=== PATIENT | female | born 1945 | race Caucasian/White ===

== ENCOUNTER 2017-01-10 09:01 | Outpatient (CLI) | payer MEDICARE, OTHER ==
--- NOTE | 2017-01-10 13:38 | MRI ---
EXAM: CERVICAL SPINE MRI WITH AND WITHOUT CONTRAST: HISTORY: Numbness. COMPARISON: 11/30/16. TECHNIQUE: A cervical spine MRI is performed without intravenous and with intravenous Gadolinium administration . Multisequential, multiplanar imaging is performed. FINDINGS: Stable marrow signal intensity of the cervical vertebrae. Persistent straightening of normal cervic al lordosis. No significant STIR hyperintensity to suggest ligamentous injury or vertebral body marcel ma. Visualized brain parenchyma, cervicomedullary junction, cervical cord, and the upper thoracic cord h ave a normal size and signal intensity. On the postcontrast images, there is appropriate enhancement of the vertebral bodies. There is no a bnormal enhancement of the visualized brain parenchyma, cervicomedullary junction, cervical cord, or the upper thoracic cord. Stable grade I anterolisthesis of C3 upon C4, C6 upon C7, and C7 upon T1. C2-C3: Central disk-osteophyte complex without significant central canal stenosis. Neural foramina are patent. C3-C4: Central disk-osteophyte complex abuts the thecal sac. Ventral subarachnoid space is maintai payton. No significant central canal stenosis or foraminal narrowing. C4-C5: Broad-based disk-osteophyte complex abuts the thecal sac. Mild central canal stenosis. Fabiola ral foramen are patent. C5-C6: Broad-based disk-osteophyte complex abuts the thecal sac. Ventral subarachnoid space contin ues to be effaced. There is moderate central canal stenosis. Mild bilateral foraminal narrowing. Stable flattening of the cervical cord. C6-C7: Broad-based disk-osteophyte complex abuts the thecal sac. No significant central canal sten osis. Neural foramen are patent bilaterally. C7-T1: No central canal stenosis. Neural foramen are patent. IMPRESSION: 1. Stable degenerative change of the cervical spine. 2. No abnormal enhancement in the cervical cord. Additionally, the previously noted patchy T2 hype rintensity in the cord is not appreciated on the current examination suggesting artifact on the prev ious study. POS: [facility]
== END 2017-01-10 09:02 | disposition home or self-care (01) ==
LOC: TBSIIMAG 09:01
PROVIDERS: ATTEND Neurological Surgery
DX: R20.2 Paresthesia of skin (principal); M47.812 Spondylosis without myelopathy or radiculopathy, cervical region
CPT/HCPCS: 72156

== ENCOUNTER 2017-02-26 10:59 | Outpatient (CLI) | payer MEDICARE, OTHER ==
--- NOTE | 2017-02-26 13:45 | RAD ---
KUB: Date: 02-26-17 Comparison: None. History: Microscopic hematuria. FINDINGS: There are two calcifications within the right upper quadrant, measuring 5-6 mm each, suggesting proba ble right sided renal calculi. In addition, there is a 4-5 mm calcification in the left upper abdomen , which may represent a stone overlying the left lower pole. The bowel gas pattern is nonobstructed. Stool overlies the colon. IMPRESSION: Bilateral upper abdominal calcifications suggest bilateral renal stone disease. POS: [facility]
== END 2017-02-26 11:00 | disposition home or self-care (01) ==
LOC: RAD 10:59
PROVIDERS: ATTEND Urology
DX: R31.29 Other microscopic hematuria (principal); N28.89 Other specified disorders of kidney and ureter
CPT/HCPCS: 74000; 88112

== ENCOUNTER 2017-09-18 07:51 | Outpatient (CLI) | payer MEDICARE, OTHER ==
[2017-09-18 08:42] LABS: Anion Gap 12 mmol/L (10-20); BUN (Urea Nitrogen) 15 mg/dL (9.8-20.1); Calc. Creatinine Clearance 0 mL/min (70-130); Calcium 9.5 mg/dL (7.8-10.44); Carbon Dioxide 25 mmol/L (23-31); Chloride 100 mmol/L (98-107); Estimated GFR-MDRD 80; Glucose 106 mg/dL (80-115); Potassium 3.9 mmol/L (3.5-5.1); Sodium 133 mmol/L (136-145)
[2017-09-18 09:02] LABS: Bilirubin Negative (Negative); Blood, Urine Small (Negative); Clarity CLOUDY (Clear); Glucose, Urine (Dipstick) Negative (Negative); Leukocyte Large (Negative); Nitrite Positive (Negative); Protein, Urine (Dipstick) Negative (Neg-Trace); Specific Gravity, Urine 1.012 (1.002-1.036); Urobilinogen 0.2 mg/dL (0.2-1.0)
[2017-09-18 09:04] LABS: Bacteria/HPF 4+ HPF (None Seen); Hyaline Casts/LPF 0-3 HYALINE CAST LPF (0-3 Hyaline); Squamous Epithelial None Seen HPF (0-3); WBC/HPF 21-50 HPF (0-3)
--- NOTE | 2017-09-18 09:29 | RAD ---
KUB: HISTORY: Renal stone. FINDINGS: Comparison is made with the exam of 02/26/17. The 2 right-sided renal calculi measuring about 5-6 mm each and the 4-5 mm calculus in the left kidney are unchanged. There is fecal material in the colon . Bowel gas pattern is unremarkable. IMPRESSION: Stable bilateral renal calculi. POS: [facility]
== END 2017-09-18 07:52 | disposition home or self-care (01) ==
LOC: RAD 07:51
PROVIDERS: ATTEND Urology
DX: N20.0 Calculus of kidney (principal); R31.29 Other microscopic hematuria
CPT/HCPCS: 36415; 74018; 80048; 81001; 87077; 87086; 87186; 88112

== ENCOUNTER 2017-10-07 12:26 | Emergency (ER) | payer MEDICARE, OTHER ==
[2017-10-07] MEDS ORDERED: Dexamethasone 4 mg/ml Vial ONE (14:07)
== END 2017-10-07 15:24 | disposition home or self-care (01) ==
LOC: ERS 12:26
DX: T78.1XXA Other adverse food reactions, not elsewhere classified, initial encounter (principal); E78.5 Hyperlipidemia, unspecified; I10 Essential (primary) hypertension; F41.9 Anxiety disorder, unspecified; F32.9 Major depressive disorder, single episode, unspecified; Z79.899 Other long term (current) drug therapy; Z79.82 Long term (current) use of aspirin
CPT/HCPCS: 96374; J1100

== ENCOUNTER 2017-10-29 14:31 | Outpatient (CLI) | payer MEDICARE, OTHER ==
--- NOTE | 2017-10-29 14:55 | RAD ---
ABDOMEN ONE VIEW: History: Renal calculi. Comparison: 09-18-17 FINDINGS: Gas and stool throughout the colon and rectum. Small bowel gas pattern is nonspecific. Irregular shap ed calcifications overlying the inferior pole of each kidney are similar in appearance to the prior e xam. IMPRESSION: Stable radiographic appearance of bilateral renal calculi. POS: [facility]
--- NOTE | 2017-10-29 16:00 | ULT ---
ULTRASOUND RENAL BILATERAL STANDARD: Date: 10/29/17 HISTORY: Microscopic hematuria. History of renal stones. COMPARISON: CT from 2017. TECHNIQUE: Real-time Jasso scale and color evaluation of the kidneys and urinary bladder performed. FINDINGS: The right kidney measures 9.7 x 5.9 x 9.8 cm. The left kidney measures 11.5 x 5.6 x 6.0 cm. There are bilateral nonobstructive renal calculi. The largest calculus in the right kidney measures up to 1.4 cm. The largest calculus in the left kidney measures up to 6.0 mm. Pre-void urinary bladder volume was 150 mL. IMPRESSION: 1. No evidence of obstructive uropathy. 2. Nonobstructive bilateral renal calculi. POS: [facility]
== END 2017-10-29 14:32 | disposition home or self-care (01) ==
LOC: ULT 14:31
PROVIDERS: ATTEND Urology
DX: N20.0 Calculus of kidney (principal); R31.29 Other microscopic hematuria
CPT/HCPCS: 36415; 74018; 76770; 80053; 81001; 83516; 84443; 85025; 87086

== ENCOUNTER 2017-12-16 10:40 | Outpatient (CLI) | payer MEDICARE, OTHER | END 2017-12-16 10:41 | disposition home or self-care (01) | LOC: BICMAMMO 10:40 | PROVIDERS: ATTEND Internal Medicine | DX: Z12.31 Encounter for screening mammogram for malignant neoplasm of breast (principal); R92.1 Mammographic calcification found on diagnostic imaging of breast; Z80.3 Family history of malignant neoplasm of breast | CPT/HCPCS: 77063; 77067 ==

== ENCOUNTER 2017-12-30 11:05 | Outpatient (CLI) | payer MEDICARE, OTHER ==
[2017-12-30 11:36] LABS: Bilirubin Negative (Negative); Blood, Urine Trace (Negative); Clarity CLEAR (Clear); Glucose, Urine (Dipstick) Negative (Negative); Leukocyte Negative (Negative); Nitrite Negative (Negative); Protein, Urine (Dipstick) Negative (Neg-Trace); Specific Gravity, Urine 1.005 (1.002-1.036); Urobilinogen 0.2 mg/dL (0.2-1.0); pH, Urine 7.5 (5.0-9.0)
[2017-12-30 11:39] LABS: Bacteria/HPF None Seen HPF (None Seen); Hyaline Casts/LPF 0-3 HYALINE CAST LPF (0-3 Hyaline); RBC/HPF 0-3 HPF (0-3); Squamous Epithelial None Seen HPF (0-3); WBC/HPF None Seen HPF (0-3)
[2017-12-30 11:58] LABS: Anion Gap 9 mmol/L (10-20); BUN (Urea Nitrogen) 10 mg/dL (9.8-20.1); Calc. Creatinine Clearance 0 mL/min (70-130); Calcium 9.3 mg/dL (7.8-10.44); Carbon Dioxide 28 mmol/L (23-31); Chloride 99 mmol/L (98-107); Estimated GFR-MDRD 74; Glucose 133 mg/dL (83-110); Potassium 4.1 mmol/L (3.5-5.1); Sodium 132 mmol/L (136-145)
--- NOTE | 2017-12-30 14:50 | RAD ---
KUB: History: Renal calculi. Comparison: 10-29-17 FINDINGS: Bilateral renal calculi are seen which appear stable in appearance as compared to the prior exam. I d o not see any definitive ureteral calculus. Arthritic changes of the spine and hips are noted. IMPRESSION: Stable bilateral renal calculi. POS: [facility]
== END 2017-12-30 11:06 | disposition home or self-care (01) ==
LOC: RAD 11:05
PROVIDERS: ATTEND Urology
DX: N20.0 Calculus of kidney (principal); R31.29 Other microscopic hematuria
CPT/HCPCS: 36415; 74018; 80048; 81001; 87086

== ENCOUNTER 2018-01-27 10:49 | Outpatient (CLI) | payer MEDICARE, OTHER ==
--- NOTE | 2018-01-27 14:13 | BD ---
DEXA SCAN: INDICATION: Postmenopausal osteoporosis screening. COMPARISON: None. Lumbar Spine: BMD (g/cm2) L1 0.787 T-Score: -1.8 Z-Score: 0.1 L2 0.844 T-Score: -1.7 Z-Score: 0.5 L3 0.981 T-Score: -0.9 Z-Score: 1.3 L4 1.002 T-Score: -0.5 Z-Score: 1.8 L1-L4 0.915 T-Score: -1.2 Z-Score: 1.0 Femoral Neck: 0.731 T-Score: -1.1 Z-Score: 0.8 Total Femur: 1.018 T-Score: 0.6 Z-Score: 2.2 Based on WHO fracture risk assessment tool, the 10-year fracture risk for a major osteoporotic fractu re is 9.3% and for a hip fracture 9.3% and for a hip fracture is 1.1%. IMPRESSION: Based on WHO criteria, the patient's bone mineral density is osteopenic. The patient is at moderate risk for fracture. POS: [facility]
== END 2018-01-27 10:50 | disposition home or self-care (01) ==
LOC: BICMAMMO 10:49
PROVIDERS: ATTEND Internal Medicine
DX: Z78.0 Asymptomatic menopausal state (principal); M85.89 Other specified disorders of bone density and structure, multiple sites
CPT/HCPCS: 77080

== ENCOUNTER 2018-02-06 10:55 | Outpatient (CLI) | payer MEDICARE, OTHER ==
[2018-02-06 13:29] LABS: Mean Corpuscular HGB CONC 32.3 g/dL (32.0-36.0); Mean Corpuscular Hemoglobin 32.6 pg (27.0-31.0); Mean Platelet Volume 7.6 fL (7.4-10.4); Platelet Count 291 thou/uL (130-400); RBC Distribution Width 11.4 % (11.5-14.5); Red Blood Cell (RBC) Count 4.61 mill/uL (4.20-5.40); White Blood Cell (WBC) Count 5.8 thou/uL (4.8-10.8)
[2018-02-06 13:40] LABS: Bacteria/HPF None Seen HPF (None Seen); Bilirubin Negative (Negative); Blood, Urine Small (Negative); Clarity CLEAR (Clear); Glucose, Urine (Dipstick) Negative (Negative); Hyaline Casts/LPF 0-3 HYALINE CAST LPF (0-3 Hyaline); Leukocyte Negative (Negative); Nitrite Negative (Negative); Protein, Urine (Dipstick) Negative (Neg-Trace); Specific Gravity, Urine 1.005 (1.002-1.036); Squamous Epithelial None Seen HPF (0-3); Urobilinogen 0.2 mg/dL (0.2-1.0); WBC/HPF None Seen HPF (0-3)
[2018-02-06 13:41] LABS: PTT 30.6 SEC (22.9-36.1); Prothrombin Time 12.8 SEC (12.0-14.7)
[2018-02-06 13:58] LABS: Anion Gap 16 mmol/L (10-20); BUN (Urea Nitrogen) 15 mg/dL (9.8-20.1); Calc. Creatinine Clearance 0 mL/min (70-130); Carbon Dioxide 24 mmol/L (23-31); Chloride 102 mmol/L (98-107); Estimated GFR-MDRD 79; Glucose 102 mg/dL (83-110); Potassium 3.8 mmol/L (3.5-5.1); Sodium 138 mmol/L (136-145)
--- NOTE | 2018-02-06 15:43 | EKG ---
Test Reason : Blood Pressure : / mmHG Vent. Rate : 080 BPM Atrial Rate : 080 BPM P-R Int : 156 ms QRS Dur : 094 ms QT Int : 398 ms P-R-T Axes : 058 -03 044 degrees QTc Int : 459 ms Normal sinus rhythm Low voltage QRS Cannot rule out Anterior infarct , age undetermined Abnormal ECG Confirmed by KILEY THOMPSON ([id number]) on 02/06/2018 3:43:17 PM Referred By: ABBE Confirmed By:KILEY THOMPSON
== END 2018-02-06 10:56 | disposition home or self-care (01) ==
LOC: LABBT 10:55
PROVIDERS: ATTEND Urology
DX: Z01.818 Encounter for other preprocedural examination (principal); N20.0 Calculus of kidney; R31.29 Other microscopic hematuria; N39.41 Urge incontinence
CPT/HCPCS: 80048; 81001; 85027; 85610; 85730; 87086; 93005; 93010

== ENCOUNTER 2018-02-19 06:08 | Day surgery (SDC) | payer MEDICARE, OTHER ==
[2018-02-06 11:22] VITALS: BMI 26.9
[2018-02-19] MEDS ORDERED: diphenhydrAMINE 50 MG/ML VIAL ONE (06:50)
[2018-02-19] MEDS ORDERED: Hydrocortisone Sod Succ/PF 100 mg/2 ml Vial ONE (06:53)
[2018-02-19] MEDS ORDERED: Fentanyl 250 MCG/5 ML VIAL ONE (06:53)
[2018-02-19] MEDS ORDERED: Iothalamate Meglumine 60% 50 ML VIAL FS ONE (07:12)
[2018-02-19] MEDS ORDERED: Ioversol 68 % 50 ML VIAL ONE (07:30)
[2018-02-19] MEDS ORDERED: Levofloxacin 500 mg/D5W 100 ml Premix Bag ONE (07:46)
[2018-02-19] MEDS ORDERED: Phenazopyridine HCl 97.5 MG TABLET ONE (09:25)
[2018-02-19] MEDS ORDERED: Ketorolac Tromethamine 30 MG/ML VIAL ONE (09:25)
[2018-02-19] MEDS ORDERED: Oxybutynin 5 MG TAB ONE (09:25)
[2018-02-19] MEDS ORDERED: Fentanyl 100 MCG/2 ML VIAL ONE (09:29)
--- NOTE | 2018-02-19 09:45 | RAD ---
RETROGRADE URETEROGRAM INTRAOPERATIVE FLUOROSCOPY: History: Ureteral obstruction. Fluoro time: 0.6 minutes. FINDINGS/IMPRESSION: Intraoperative fluoroscopy was provided for retrograde study as performed by Dr. Chris. Spot fl uoroscopic images show contrast opacification of a nondilated right renal collecting system and urete r and placement of a stent. Proximal coil is over the location of the right renal pelvis. Distal coil is not included on the images. POS: [facility]
--- NOTE | 2018-02-19 10:04 | OP ---
DATE OF PROCEDURE: 02/19/2018 PREOPERATIVE DIAGNOSIS: This is a 72-year-old female with history of bilateral renal calculi. Right renal calculi, mid pole 8-9 mm, lower pole 6 mm; left lower pole 5 mm, Hounsfield unit 1700. POSTOPERATIVE DIAGNOSIS: This is a 72-year-old female with history of bilateral renal calculi. Righ t renal calculi, mid pole 8-9 mm, lower pole 6 mm; left lower pole 5 mm, Hounsfield unit 1700. PROCEDURE: Cystoscopy, dilation of right distal ureter, retrograde pyelogram, flexible ureteroscopy, pyeloscopy, laser lithotripsy of multiple right renal calculi, basket extraction of stone fragments, 6 x 24 double-J ureteral stent placement. SURGEON: Yaneli Chris D.O. ANESTHESIA: General. COMPLICATIONS: None apparent. DISPOSITION: To the recovery room in stable condition. SPECIMEN: Stone fragments for chemical analysis. INDICATIONS FOR THE PROCEDURE AND HISTORY: Ms. Downs is a 72-year-old female, G4, P4, who init [facility] presented for evaluation of microscopic hematuria. The patient has mixed urinary incontinence, mild in nature; however, recently started on VESIcare. She says that she has it at home; however, n ot started the medical therapy for this. We have been observing her bilateral renal calculi found on workup for microscopic hematuria. Given stone size, burden of the right kidney, she desired to proc eed with elective treatment. We discussed options of ESWL, ureteroscopy, laser lithotripsy. I did n ot recommend PCNL. She desired to proceed with more efficacious treatment, i.e., ureteroscopy, laser lithotripsy with the full understanding regarding possible secondary intervention if needed. All qu estions were answered to her satisfaction. Risks and complications including, but not limited to, bl eeding, pain, infection, injury to adjacent organs, stricture formation, ureter, bladder, and kidney injury, sepsis. All questions answered. She desired to proceed without reservation. DESCRIPTION OF THE PROCEDURE: After an informed consent is signed, the patient is taken to the opera ting room, placed in a dorsal lithotomy position with the genital area prepped and draped in the usua l surgical sterile fashion. Bilateral TWILA hose, SCDs, and broad-spectrum antibiotics were provided. A 21-Venezuelan cystoscope was utilized for cystoscopy, which demonstrated normal bladder mucosa. Bilat eral UOs identified in normal orthotopic position. At this time, a 5-Venezuelan open-ended catheter was utilized for retrograde pyelogram, which demonstrated no evidence of filling defect. The stones were seen on fluoroscopy in the mid and lower pole, the lower pole infundibulum had an acute approximatel y 45-degree angle infundibulum. At this time, a 0.35 sensor wire was placed in the right upper pole. Using a [employer] 4 cm 12-Venezuelan balloon dilator, we passively dilated the distal intramura l ureter. After subsequent dilatation balloon was deflated. A 10-Venezuelan dual-lumen access sheath wa s able to be passed to the level of the proximal ureter and a second safety wire, 0.35 Super Stiff wa s placed. The navigator was then removed and an 11/13-Venezuelan x 28 cm navigator was passed to the lev el of the proximal ureter with ease. A digital flexible ureteroscope was then advanced over the work ing wire. We visualized each arlin, a large stone was seen in the right mid pole, the angle was quit e cumbersome given its location, the lower pole stone was visualized and moved to a more amendable tr eatment with basket. The stones appeared to be larger than previously inspected. The right mid pole was probably approximately 9-10 mm and left lower pole stone approximately 8 mm. Using 200 micron l aser fiber, we laser lithotripsied the lower pole stone first. The fragmented debris did migrate int o the upper pole, and we basket extracted the fragments. We now paid attention to our right mid pole stone, angle was quite challenging. I tried to utilize the basket to move to a stone to more amenda ble location; however, given its size, it would not be negotiated out of the mid pole arlin. Therefo re, we did laser lithotripsy the lead edge of the stone and we were able to make progress. Using 200 micron fiber, I was able to make progress and laser lithotripsy the stone complete. The fragmented debris did migrate into the lower pole. We basket extracted all of those that were amendable to be b asket extracted. We surveyed the collecting system. I did not see any further stone nidus in the up per and mid pole of concern. Punctate residual nidus remains. In the lower pole, I did see anterior lower pole arlin that had some fragmented debris. We basket extracted this as much as we can. Johny nevarez was not amendable given its anterior location. Inspection of the lower pole anterior arlin demonst rated the fragmented debris was quite small punctate in nature, largest approximately 2 mm. Therefor e, given the angle and difficulty engaging these were left in situ, again noted at these are very sma ll stones, which she will most likely pass. Fluoroscopy demonstrated no significant stone burden of concern. The ureter was surveyed, which demonstrated no evidence of ureteral calculi and no ureteral mucosa trauma of concern. Navigator was completely removed. A 6 x 24 double-J ureteral stent was p assed without difficulty and bladder completely emptied. She is discharged with ciprofloxacin until followup appointment, Zofran 4 mg ODT p.r.n., ciprofloxacin 7 days, Colace 100 mg 1 p.o. b.i.d. AZO p .r.n., Uledi 5/325. She has VESIcare at home. I encouraged the patient to fill the prescription, as she will have frequency or urgency due to an indwelling ureteral stent. She will see me next Tuesda y with KUB an hour prior to appointment. If no ureteral stone debris of concern, we will perform cys to stent pull under local.
[2018-02-19] MEDS ORDERED: HYDROcodone/Acetaminophen 5/325 mg Tablet ONE (10:35)
[2018-02-19] MEDS ORDERED: PHENYLEPHRINE-NS 100 MCG/ML 10 ML SYRINGE ONE (16:42)
[2018-02-19] MEDS ORDERED: PROPOFOL 200 MG/20 ML VIAL ONE (16:42)
[2018-02-19] MEDS ORDERED: Ondansetron PF 4 MG/2 ML Vial ONE (16:42)
[2018-02-19] MEDS ORDERED: Lidocaine 1% PF 5 ML VIAL ONE (16:42)
[2018-02-19] MEDS ORDERED: Glycopyrrolate 0.2 MG/ML 5 ML SYRINGE ONE (16:42)
== END 2018-02-19 11:06 | disposition home or self-care (01) ==
LOC: SDC 06:08
PROVIDERS: ATTEND Urology
PROC: 0TF38ZZ Fragmentation in Right Kidney Pelvis, Via Natural or Artificial Opening Endoscopic (ICD-10-PCS; principal; 2018-02-19)
PROC: 0T768DZ Dilation of Right Ureter with Intraluminal Device, Via Natural or Artificial Opening Endoscopic (ICD-10-PCS; 2018-02-19)
DX: N20.2 Calculus of kidney with calculus of ureter (principal); N39.41 Urge incontinence
CPT/HCPCS: 52356; 74420; 82365; 88300; 96374; 96375; C1758; C1769; J1200; J1720; J1885; J1956; J2001; J2405; J2704; J3010; Q9961; Q9967

== ENCOUNTER 2018-02-25 07:06 | Outpatient (CLI) | payer MEDICARE, OTHER ==
--- NOTE | 2018-02-25 08:29 | RAD ---
CHEST ONE VIEW: History: 72-year-old female with history of renal calculi. FINDINGS: Right ureteral calculus is in place. Left lower pole renal calculus. Two previously noted right renal calculi seen on 12-30-17 study are no longer evident. IMPRESSION: Right ureteral stent. Left lower pole renal calculus. POS: [facility]
== END 2018-02-25 07:07 | disposition home or self-care (01) ==
LOC: RAD 07:06
PROVIDERS: ATTEND Urology
DX: N20.0 Calculus of kidney (principal); Z96.0 Presence of urogenital implants
CPT/HCPCS: 74018

== ENCOUNTER 2018-04-21 08:56 | Outpatient (CLI) | payer MEDICARE, OTHER ==
--- NOTE | 2018-04-21 09:56 | RAD ---
ACUTE ABDOMINAL RADIOGRAPH: Date: 04-21-18 History: Renal stones. Comparison: 03-05-18 FINDINGS: Right ureteral stent has been removed. Calculus overlying the inferior pole left renal shadow is agai n present. There are calcifications overlying the medial left upper quadrant, probably related to vas cular type calcifications. Bowel gas pattern is nonspecific. Osseous structures are intact. Degenerative changes are noted at th e pubic symphysis. No other interval change. IMPRESSION: 1. Interval removal of the right ureteral stent. 2. Left nephrolithiasis, stable from prior exam. POS: [facility]
== END 2018-04-21 08:57 | disposition home or self-care (01) ==
LOC: RAD 08:56
PROVIDERS: ATTEND Urology
DX: N20.0 Calculus of kidney (principal); R31.29 Other microscopic hematuria
CPT/HCPCS: 74018; 81001; 87086

== ENCOUNTER 2019-02-25 10:37 | Outpatient (CLI) | payer MEDICARE, OTHER ==
--- NOTE | 2019-02-25 11:18 | MMO ---
Bilateral MAMMO Bilat Screen [facility]. CLINICAL HISTORY: Patient is 73 years old and is seen for screening. The patient has the following family history of breast cancer: mother, at age 65, malignant (generic) and maternal grandmother, at age 70, malignant (generic). The patient has no personal history of cancer. The patient has a history of Explantation at age 56 and Implants. VIEWS: The views performed were: bilateral craniocaudal with tomosynthesis and bilateral mediolateral oblique with tomosynthesis. FILMS COMPARED: The present examination has been compared to prior imaging studies performed at [facility] on 12/16/2014 and 02/22/2016, and at [facility] on 12/16/2017. This study has been interpreted with the assistance of computer-aided detection. MAMMOGRAM FINDINGS: There are scattered fibroglandular densities. There are no suspicious masses, suspicious calcifications, or new areas of architectural distortion. IMPRESSION: THERE IS NO MAMMOGRAPHIC EVIDENCE OF MALIGNANCY. A ROUTINE FOLLOW-UP MAMMOGRAM IN 1 YEAR IS RECOMMENDED. THE RESULTS OF THIS EXAM WERE SENT TO THE PATIENT. ACR BI-RADS Category 1 - Negative MAMMOGRAPHY NOTE: 1. A negative mammogram report should not delay a biopsy if a dominant of clinically suspicious mass is present. 2. Approximately 10% to 15% of breast cancers are not detected by mammography. 3. Adenosis and dense breasts may obscure an underlying neoplasm. Reported by: NAKUL ZUNIGA MD Electonically Signed: [id number]
== END 2019-02-25 10:38 | disposition home or self-care (01) ==
LOC: BICMAMMO 10:37
PROVIDERS: ATTEND Internal Medicine
DX: Z12.31 Encounter for screening mammogram for malignant neoplasm of breast (principal); Z80.3 Family history of malignant neoplasm of breast
CPT/HCPCS: 77063; 77067

== ENCOUNTER 2019-05-06 10:38 | Outpatient (CLI) | payer MEDICARE, OTHER ==
--- NOTE | 2019-05-06 11:04 | RAD ---
KUB INDICATION: Microhematuria and renal stones COMPARISON: Prior exam degenerated 2018 FINDINGS: Bowel gas: Nonspecific but without overt appearance of obstruction. Lung bases: Clear. Additional findings: Stable left nephrolithiasis. Osseous structures: No acute fracture or subluxation demonstrated. There is scattered degenerative an d osteoarthritic change present. IMPRESSION: 1. Stable left nephrolithiasis
== END 2019-05-06 10:39 | disposition home or self-care (01) ==
LOC: RAD 10:38
PROVIDERS: ATTEND Urology
DX: N20.0 Calculus of kidney (principal)
CPT/HCPCS: 74018

== ENCOUNTER 2020-03-22 12:46 | Outpatient (CLI) | payer MEDICARE, OTHER ==
--- NOTE | 2020-03-22 13:32 | BD ---
BONE DENSITOMETRY: INDICATION: Postmenopausal screening. FINDINGS: Lumbar Spine: BMD (g/cm2) L1 0.735 T-Score: -2.3 L2 0.767 T-Score: -2.4 L3 0.851 T-Score: -2.1 L4 0.916 T-Score: -1.3 L1-L4 0.827 T-Score: -2.0 Femoral Neck: 0.801 T-Score: -0.4 Total Femur: 0.944 T-Score: 0.0 Impression: 1. Bone mineral density of the lumbar spine indicates osteopenia. 2. Bone mineral density of the femoral neck within normal range. Ten-year fracture risk: Major osteoporotic fracture: 12%. Hip fracture: 2.8%. POS: [facility]
--- NOTE | 2020-03-22 15:38 | MMO ---
Bilateral MAMMO Bilat Screen [facility]. CLINICAL HISTORY: Patient is 74 years old and is seen for screening. The patient has the following family history of breast cancer: mother, at age 65, malignant (generic) and maternal grandmother, at age 70, malignant (generic). The patient has no personal history of cancer. The patient has a history of Explantation at age 56 and Implants. VIEWS: The views performed were: bilateral craniocaudal with tomosynthesis and bilateral mediolateral oblique with tomosynthesis. FILMS COMPARED: The present examination has been compared to prior imaging studies performed at [facility] on 12/16/2014 and 02/22/2016, and at [facility] on 12/16/2017 and 02/25/2019. This study has been interpreted with the assistance of computer-aided detection. MAMMOGRAM FINDINGS: There are scattered fibroglandular densities. There are no suspicious masses, suspicious calcifications, or new areas of architectural distortion. IMPRESSION: THERE IS NO MAMMOGRAPHIC EVIDENCE OF MALIGNANCY. A ROUTINE FOLLOW-UP MAMMOGRAM IN 1 YEAR IS RECOMMENDED. THE RESULTS OF THIS EXAM WERE SENT TO THE PATIENT. ACR BI-RADS Category 1 - Negative MAMMOGRAPHY NOTE: 1. A negative mammogram report should not delay a biopsy if a dominant of clinically suspicious mass is present. 2. Approximately 10% to 15% of breast cancers are not detected by mammography. 3. Adenosis and dense breasts may obscure an underlying neoplasm. Reported by: NELLIE BERMUDEZ MD Electonically Signed: [id number]
== END 2020-03-22 12:47 | disposition home or self-care (01) ==
LOC: BICMAMMO 12:46
PROVIDERS: ATTEND Internal Medicine
DX: Z12.31 Encounter for screening mammogram for malignant neoplasm of breast (principal); Z13.820 Encounter for screening for osteoporosis; M85.88 Other specified disorders of bone density and structure, other site; Z78.0 Asymptomatic menopausal state; Z80.3 Family history of malignant neoplasm of breast; Z98.82 Breast implant status; Z98.890 Other specified postprocedural states
CPT/HCPCS: 77063; 77067; 77080

== ENCOUNTER 2020-11-30 13:37 | Outpatient (CLI) | payer MEDICARE, OTHER | END 2020-11-30 13:38 | disposition home or self-care (01) | LOC: ULT 13:37 | PROVIDERS: ATTEND Internal Medicine | DX: I83.813 Varicose veins of bilateral lower extremities with pain (principal) ==

== ENCOUNTER 2021-02-21 10:05 | Outpatient (CLI) | payer MEDICARE, OTHER | END 2021-02-21 10:06 | disposition home or self-care (01) | LOC: RAD 10:05 | PROVIDERS: ATTEND Internal Medicine | DX: N20.0 Calculus of kidney (principal) | CPT/HCPCS: 74018 ==

== ENCOUNTER 2021-03-27 11:04 | Outpatient (CLI) | payer MEDICARE, OTHER | END 2021-03-27 11:05 | disposition home or self-care (01) | LOC: BICMAMMO 11:04 | PROVIDERS: ATTEND Internal Medicine | DX: Z12.31 Encounter for screening mammogram for malignant neoplasm of breast (principal); Z80.3 Family history of malignant neoplasm of breast; Z98.82 Breast implant status | CPT/HCPCS: 77063; 77067 ==

== ENCOUNTER 2022-03-06 09:32 | Outpatient (CLI) | payer MEDICARE, OTHER | END 2022-03-06 09:33 | disposition home or self-care (01) | LOC: BICRAD 09:32 | PROVIDERS: ATTEND Urology | DX: N20.0 Calculus of kidney (principal); N28.89 Other specified disorders of kidney and ureter | CPT/HCPCS: 36415; 74018; 80048 ==

== ENCOUNTER 2022-04-20 09:57 | Outpatient (CLI) | payer MEDICARE, OTHER | END 2022-04-20 09:58 | disposition home or self-care (01) | LOC: BICMAMMO 09:57 | PROVIDERS: ATTEND Internal Medicine | DX: Z12.31 Encounter for screening mammogram for malignant neoplasm of breast (principal); M85.88 Other specified disorders of bone density and structure, other site; Z80.3 Family history of malignant neoplasm of breast; Z78.0 Asymptomatic menopausal state | CPT/HCPCS: 77063; 77067; 77080 ==

== ENCOUNTER 2022-11-26 07:49 | Outpatient (CLI) | payer MEDICARE, OTHER | END 2022-11-26 07:50 | disposition home or self-care (01) | LOC: RAD 07:49 | PROVIDERS: ATTEND Internal Medicine | DX: M25.571 Pain in right ankle and joints of right foot (principal); M19.071 Primary osteoarthritis, right ankle and foot; R73.03 Prediabetes; E55.9 Vitamin D deficiency, unspecified; E53.8 Deficiency of other specified B group vitamins | CPT/HCPCS: 36415; 80048; 82306; 82607; 83036 ==

== ENCOUNTER 2024-02-11 14:49 | Outpatient (CLI) | payer MEDICARE, OTHER | END 2024-02-11 14:50 | disposition home or self-care (01) | LOC: BICRAD 14:49 | PROVIDERS: ATTEND Urology | DX: N20.0 Calculus of kidney (principal); N28.89 Other specified disorders of kidney and ureter | CPT/HCPCS: 74018 ==

== ENCOUNTER 2024-03-02 12:26 | Outpatient (CLI) | payer MEDICARE, OTHER | END 2024-03-02 12:27 | disposition home or self-care (01) | LOC: CT 12:26 | PROVIDERS: ATTEND Urology | DX: N20.0 Calculus of kidney (principal); K57.32 Diverticulitis of large intestine without perforation or abscess without bleeding | CPT/HCPCS: 74176 ==

== ENCOUNTER 2024-03-27 10:42 | Outpatient (CLI) | payer MEDICARE, OTHER | END 2024-03-27 10:43 | disposition home or self-care (01) | LOC: BICRAD 10:42 | PROVIDERS: ATTEND Internal Medicine | DX: M79.644 Pain in right finger(s) (principal); M19.041 Primary osteoarthritis, right hand; E78.5 Hyperlipidemia, unspecified; E55.9 Vitamin D deficiency, unspecified; E53.8 Deficiency of other specified B group vitamins; R73.03 Prediabetes | CPT/HCPCS: 36415; 80048; 80061; 82306; 82607; 83036 ==

== ENCOUNTER 2024-05-18 14:04 | Outpatient (CLI) | payer MEDICARE, OTHER | END 2024-05-18 14:05 | disposition home or self-care (01) | LOC: BICMAMMO 14:04 | PROVIDERS: ATTEND Internal Medicine | DX: N64.4 Mastodynia (principal) | CPT/HCPCS: 76642; 77066; G0279 ==

== ENCOUNTER 2025-01-19 10:25 | Outpatient (CLI) | payer MEDICARE, OTHER | END 2025-01-19 10:26 | disposition home or self-care (01) | LOC: CT 10:25 | PROVIDERS: ATTEND Urology | DX: N20.0 Calculus of kidney (principal); K57.30 Diverticulosis of large intestine without perforation or abscess without bleeding | CPT/HCPCS: 74176 ==

== ENCOUNTER 2025-02-22 15:39 | Outpatient (CLI) | payer MEDICARE, OTHER | END 2025-02-22 15:40 | disposition home or self-care (01) | LOC: RAD 15:39 | PROVIDERS: ATTEND Internal Medicine | DX: R05.9 Cough, unspecified (principal) | CPT/HCPCS: 71046 ==

== ENCOUNTER 2025-04-03 12:50 | Outpatient (CLI) | payer MEDICARE, OTHER | END 2025-04-03 12:51 | disposition home or self-care (01) | LOC: CT 12:50 | PROVIDERS: ATTEND Internal Medicine | DX: R91.8 Other nonspecific abnormal finding of lung field (principal) | CPT/HCPCS: 71250 ==